=== PATIENT | female | born 1990 | race Caucasian/White ===

== ENCOUNTER 2020-02-09 10:25 | Outpatient (REF) | payer BC, SELFPAY | END 2020-02-09 10:26 | disposition home or self-care (01) | LOC: HO.LAB 10:25 | PROVIDERS: Visit Provider Internal Medicine | DX: Z20.828 Contact with and (suspected) exposure to other viral communicable diseases (principal) | CPT/HCPCS: 87635 ==

== ENCOUNTER 2022-01-11 11:02 | Emergency (ER) | payer BC, SELFPAY ==
--- NOTE | ~2022-01-11 | XR_ITS ---
EXAMINATION: LEFT ANKLE SERIES LEFT FOOT SERIES CLINICAL INFORMATION: Pain limited range of motion COMPARISON: None TECHNIQUE: 3 views of the left ankle and 3 views of the left foot FINDINGS: Left ankle and foot: The bones joints and soft tissues are normal XR/XR ankle LT min 3V IMPRESSION: Normal x-ray series of the left ankle and left foot
--- NOTE | ~2022-01-11 | XR_ITS ---
EXAMINATION: LEFT ANKLE SERIES LEFT FOOT SERIES CLINICAL INFORMATION: Pain limited range of motion COMPARISON: None TECHNIQUE: 3 views of the left ankle and 3 views of the left foot FINDINGS: Left ankle and foot: The bones joints and soft tissues are normal XR/XR foot LT min 3V IMPRESSION: Normal x-ray series of the left ankle and left foot
[2022-01-11 11:30] VITALS: BP 146/86; PULSE 90; RESP 18; TEMP 36.5; O2SAT 98; BMI 33.3
--- NOTE | 2022-01-11 13:27 | ED.LOWEXIN ---
HPI - Extremity Injury (Lower) General Chief Complaint: Extremity Injury, Lower Stated Complaint: Fall/L ankle pain Time Seen by Provider: 01/11/22 13:26 Source: patient Mode of arrival: ambulatory Limitations: no limitations History of Present Illness HPI Narrative: 31-year-old female presents to the ER for evaluation of left ankle and foot pain after she fell down a few stairs 2 days ago. She has been trying to walk on the foot since she fell but has had worsening pain, swelling and bruising since then. She reports she works at a [employer] where she has to be on her feet throughout the day and is unable to go to work. The pain is mostly located on the outside of her left foot and ankle. She reports purple bruising at the base of her heel that is new yesterday. She denies any numbness, weakness, tingling. No other injuries. MD complaint: ankle injury Onset (ago): day(s) (3) Type of Injury: inversion Place: home Severity: moderate Severity scale (1-10): 7 Relieving factors: immobilization and rest Exacerbating factors: weight bearing, movement and palpation Context: fall Associated symptoms: swelling and able to partially bear weight Other symptoms: none Treatments prior to arrival: cold therapy Related Data Previous Rx's Medication Instructions Recorded cyclobenzaprine 5 mg tablet 5 mg PO TID PRN muscle spasm #15 07/29/20 tabs naproxen 500 mg tablet,delayed 500 mg PO BID PRN pain #30 tabs 07/29/20 release prednisone 20 mg tablet 20 mg PO DAILY 9 days #18 tabs 07/29/20 ibuprofen 800 mg tablet 800 mg PO Q8H PRN pain #14 tabs 01/11/22 Allergies Allergy/AdvReac Type Severity Reaction Status Date / Time No Known Allergies Allergy Unverified 07/29/20 14:05 [No Known Allergies*] Review of Systems Review of Systems: Constitutional: No Fever, No Chills Cardiovascular: No Chest Pain, No SOB Gastrointestinal: No Nausea, No Vomiting, No abd pain Genitourinary: No Hematuria Musculoskeletal: No joint pain, No Myalgias Skin: No Skin Lesions, No rash Neuro: No Weakness, No Numbness, No Dizziness, No Headache Psych: No Anxiety/Panic, No Depression Heme/Lymph: + Bruising, No Lymphadenopathy PMFSH Social History Social History Advance Directives: No Advance Directives Information Provided: No Physical Exam Vital Signs: Vital Signs: Last Vital Signs Temp 97.7 F 01/11/22 11:30 Pulse 90 01/11/22 11:30 Resp 18 01/11/22 11:30 BP 146/86 H 01/11/22 11:30 Pulse Ox 98 01/11/22 11:30 O2 Del Method 01/11/22 11:30 BMI result Body Mass Index 33.3 Appearance: Alert. Oriented X3. No acute distress. HEENT: normal inspection CVS: Normal heart rate and rhythm. Pulses normal. Respiratory: No respiratory distress. Skin: Skin warm and dry. Normal skin color. Normal skin turgor. No rashes. Extremities: Left lateral ankle with moderate generalized swelling, dependent ecchymosis at the base of the heel, pain with inversion, and plantar flexion. Neurovascularly intact distally. Neuro: Oriented X 3. No motor deficit. No sensory deficit. Gait not tested due to pain Course Course Course Narrative: 31-year-old female presents to the ER with left ankle pain, swelling, bruising after a fall down 2 stairs at home 3 days ago. She continues to have difficulty ambulating due to pain. X-rays today do not show any acute fractures. Will treat for ankle sprain with compression, crutches, NSAID. She will follow-up with her PCP as needed. Work note provided per request. stable for DC home. Procedures Orthopedic Splinting/Casting Injury #1: Side: left Lower Extremity Injury Location: ankle Lower Extremity Immobilizer: Rajat wrap Other Orthopedic Equipment: crutches Critical Care Time Critical Care Time Critical Care Time: No Discharge Plan Discharge Clinical Impression: Ankle sprain and strain Patient Disposition: Home, Self-Care Instructions: Ankle Sprain (ED) Additional Instructions: Your x-ray today was normal. Rest your ankle and elevate your foot when possible. Recommend RAJAT wrap for support and compression. Use ice several times per day for the next 48 hours. You may bear weight as tolerated. If pain is too severe, use crutches until better. Take Motrin and/or Tylenol as needed for pain. Follow up with your doctor as needed. Prescriptions: New ibuprofen 800 mg tablet 800 mg PO Q8H PRN (Reason: pain) Qty: 14 0RF No Action cyclobenzaprine 5 mg tablet 5 mg PO TID PRN (Reason: muscle spasm) Qty: 15 0RF naproxen 500 mg tablet,delayed release (DR/EC) 500 mg PO BID PRN (Reason: pain) Qty: 30 0RF prednisone 20 mg tablet 20 mg PO DAILY 9 Days Qty: 18 0RF Rx Instructions: 3 tabs/60mg for 3 days 2 tabs/40mg for 3 days 1 tab/20mg for 3 days Referrals: [facility] [Provider Group] Stand Alone Forms: Work/School Release Interventions: ED Discharge Assessment Last Done: 01/11/22 14:09 Discharge Date/Time: 01/11/22 14:11
== END 2022-01-11 14:11 | disposition home or self-care (01) ==
PROVIDERS: Emergency Provider Emergency Medicine
DX: S93.402A Sprain of unspecified ligament of left ankle, initial encounter (principal); S96.912A Strain of unspecified muscle and tendon at ankle and foot level, left foot, initial encounter; W10.8XXA Fall (on) (from) other stairs and steps, initial encounter; Y93.89 Activity, other specified; Y92.018 Other place in single-family (private) house as the place of occurrence of the external cause; Y99.9 Unspecified external cause status
CPT/HCPCS: 73610; 73630; 99283

== ENCOUNTER 2023-12-26 09:00 | Emergency (ER) | payer BC, SELFPAY ==
--- NOTE | ~2023-12-26 | XR_ITS ---
EXAMINATION: XR CHEST CLINICAL INFORMATION: Cough COMPARISON: None available. TECHNIQUE: Frontal view of the chest was obtained. FINDINGS: The cardiac silhouette is normal. There is mild diffuse bronchial wall thickening. There are no areas of consolidation. There are no pleural effusions or pneumothoraces. The bones and soft tissues are unremarkable for the patient's age. XR/XR chest 1V IMPRESSION: Bronchial wall thickening may be infectious and/or inflammatory in etiology. Electronically signed by: Alva Kilgore MD 12/26/2023 09:27 AM EDT RP
[2023-12-26 09:03] VITALS: BP 140/90; PULSE 108; RESP 16; TEMP 36.3; O2SAT 95; BMI 32.5
--- NOTE | 2023-12-26 09:28 | ED_ITS ---
HPI - General Adult General Chief complaint: Upper Respiratory Symptoms Stated complaint: Pneumonia Time Seen by Provider: 12/26/23 09:10 Source: patient Mode of arrival: ambulatory Limitations: no limitations History of Present Illness ED Provider: Guanakito QUACH HPI narrative: 33-year-old female with no significant pmh presenting to the emergency room today with complaints of shortness of breath and cough since 12/18/2023 with associated intermittent fevers. She has taken ibuprofen for relief of body aches and fatigue. She describes the sputum production as yellow-green with occasional blood-tinged. She cannot take a deep breath or laugh without coughing. Denies any trauma to the area, chest pain, rhinorrhea, headache, vision changesm dizziness, weakness or sinus pressure. Non smoker, not on control, denies recent travel. Related Data Previous Rx's ?Medication ?Instructions ?Recorded cyclobenzaprine 5 mg tablet 5 mg PO TID PRN muscle spasm #15 07/29/20 tabs naproxen 500 mg tablet,delayed 500 mg PO BID PRN pain #30 tabs 07/29/20 release prednisone 20 mg tablet 20 mg PO DAILY 9 days #18 tabs 07/29/20 ibuprofen 800 mg tablet 800 mg PO Q8H PRN pain #14 tabs 01/11/22 albuterol sulfate 90 mcg/actuation 2 inh inhalation Q4-6H PRN 12/26/23 breath activated powder inhaler shortness of breath or wheezing #1 ea azithromycin 250 mg tablet See Rx Instructions PO .COMPLEX #6 12/26/23 tabs doxycycline hyclate 100 mg capsule 100 mg PO BID 10 days #20 caps 12/26/23 prednisone 20 mg tablet 40 mg (2 x 20 mg) PO DAILY 5 days 12/26/23 #10 tabs Allergies Allergy/AdvReac Type Severity Reaction Status Date / Time No Known Allergies Allergy Verified 12/26/23 09:04 [No Known Allergies*] Review of Systems Review of Systems: Yes all other systems are reviewed and are negative PMFSH Past Medical History Attestation statement: The following information was validated with the patient. Social History Social History Advance Directives: No Advance Directives Information Provided: No Do you have a plan to hurt others: No Plan Physical Exam ED Vital Signs: Vital Signs - 24 hr 12/26/23 09:03 Temperature 97.3 F Pulse Rate 108 H Respiratory Rate 16 Blood Pressure 140/90 H Pulse Oximetry 95 Oxygen Delivery Method Room Air BMI result Body Mass Index 32.5 VSS Appearance: Alert.? Oriented X3.? No acute distress.? Head: Normocephalic, atraumatic, no step-offs or deformities Eyes: Pupils equal, round and reactive to light.? Neck: Normal inspection.? Neck supple.? CVS: Normal heart rate and rhythm.? Pulses normal.? Respiratory: No respiratory distress.? Breath sounds normal.? Abdomen: Soft and nontender.? Skin: Skin warm and dry.? Normal skin color.? Normal skin turgor.? Extremities: No lower extremity edema.? No calf ttp. 5/5 strength to bilateral upper and lower extremities Neuro: Oriented X 3.? No motor deficit.? No sensory deficit. CN 2-12 intact Course Reevaluation(s) Reevaluation #1: Xray concerning for bronchial wall thickening ? infectious or inflammtory in etiology. Viral test pending Plan will discharge on antibiotics, steroids and albuterol. Educated patient on diagnosis and treatment plan, answered all question, patient verbalizes understanding. At this time patient will be discharged home, advised to return with new or worsening symptoms. Educated on worrisome signs and symptoms and when to return. At this time I feel comfortable discharge home. Time: 10:09 Medical Decision Making Medical Decision Making MDM Narrative: 33 year old female presenting with concerns of shortness of breath and cough since 12/18/2023 with associated fevers. PE - benign Hx and pe concerning for viral pneumonia vs bacterial pneumonia vs bronchitis vs viral illness. Unlikely sinus infection, PE, asthma, COPD, pneumothorax, ARDS, ACS Plan - viral testing, imaging Differential Diagnosis Differential Diagnoses: The differential diagnosis associated with the presentation includes Hx and pe concerning for viral pneumonia vs bacterial pneumonia vs bronchitis vs viral illness. Unlikely sinus infection, PE, asthma, COPD, pneumothorax, ARDS, ACS Admission/Observation Consideration of admission/observation: Escalation of care including admission/observation considered Unlikleey Independent Interpretation I performed an independent interpretation of an: Plain X-Ray (XR/XR chest 1V IMPRESSION: Bronchial wall thickening may be infectious and/or inflammatory in etiology. ) Radiology Impression Discussion of test interpretation with radiology: I have reviewed the radiologist's reading. External Record Review External record reviewed: Outpatient record Prescription Management I considered prescription management with: Antibiotic and Other (prednisone ) Discharge Plan Discharge Clinical Impression: Bronchitis Patient Disposition: Home, Self-Care Instructions: Acute Bronchitis (ED) Additional Instructions: Take your medications as prescribed. If you were prescribed antibiotics today, it is important that you take your medication to their entirety, do not skip any doses, do not finish them early. Follow-up with your primary care provider this week. Return to the emergency department with new or worsening symptoms. Such as fe vers, chills, chest pain, shortness of breath, nausea, vomiting, dizziness, headache, vision changes, lethargy In case of emergency call 911 XR/XR chest 1V IMPRESSION: Bronchial wall thickening may be infectious and/or inflammatory in etiology. Prescriptions: New doxycycline hyclate 100 mg capsule 100 mg PO BID 10 Days Qty: 20 0RF azithromycin 250 mg tablet See Rx Instructions .ROUTE .COMPLEX Qty: 6 0RF Rx Instructions: For 250 mg dose pack: take 500 mg today (day 1), then 250 mg for 4 days (days 2-5) albuterol sulfate 90 mcg/actuation aerosol powdr breath activated 2 inh inhalation Q4-6H PRN (Reason: shortness of breath or wheezing) Qty: 1 0RF prednisone 20 mg tablet 40 mg PO DAILY 5 Days Qty: 10 0RF No Action ibuprofen 800 mg tablet 800 mg PO Q8H PRN (Reason: pain) Qty: 14 0RF cyclobenzaprine 5 mg tablet 5 mg PO TID PRN (Reason: muscle spasm) Qty: 15 0RF naproxen 500 mg tablet,delayed release (DR/EC) 500 mg PO BID PRN (Reason: pain) Qty: 30 0RF prednisone 20 mg tablet 20 mg PO DAILY 9 Days Qty: 18 0RF Rx Instructions: 3 tabs/60mg for 3 days 2 tabs/40mg for 3 days 1 tab/20mg for 3 days Referrals: Physician,None [Primary Care Provider] - 2 days Print Language: Slovak
[2023-12-26 10:16] LABS: IDNOW Serial# 6674DD1D; Strep A Nucleic Acid Negative (Negative)
[2023-12-26 10:32] VITALS: BP 135/77; PULSE 100; RESP 19; TEMP 36.9; O2SAT 95
[2023-12-26 10:33] VITALS: BP 135/77; PULSE 100; RESP 19; TEMP 36.9; O2SAT 95
[2023-12-26 11:02] LABS: Influenza A PCR NEGATIVE (Negative); Influenza B PCR NEGATIVE (Negative); Resp Syncy Virus RNA Qual PCR NEGATIVE (Negative); SARS COV2 PCR INHOUSE NEGATIVE (Negative)
== END 2023-12-26 10:37 | disposition home or self-care (01) ==
PROVIDERS: Emergency Provider Emergency Medicine
DX: J40 Bronchitis, not specified as acute or chronic (principal); R05.9 Cough, unspecified; R06.02 Shortness of breath; R50.9 Fever, unspecified
CPT/HCPCS: 0241U; 71045; 87651; 99282; 99283